=== PATIENT | male | born 1980 | race Caucasian/White ===

== ENCOUNTER 2021-09-06 09:47 | Emergency (ER) | payer SELFPAY ==
[2021-09-06 09:48] VITALS: BMI 25.8
[2021-09-06 09:49] VITALS: BP 160/101; PULSE 80; RESP 16; TEMP 36.9; O2SAT 98; BMI 25.8
--- NOTE | 2021-09-06 09:55 | XR_ITS ---
FINAL REPORT CLINICAL HISTORY: lower chest/epigastric pain, smoker FINDINGS: SINGLE-VIEW CHEST The heart size is normal. The mediastinum is normal. The lungs are clear. There is no pneumothorax. IMPRESSION: No acute cardiopulmonary process. Reviewed, Interpreted and Dictated by Anthony Mondragon III, MD Transcribed by Denise Hendrickson Authenticated by Anthony Mondragon III, MD on 09/06/2021 11:12:08 AM [facility]
--- NOTE | 2021-09-06 09:59 | HMH.EDGENADL ---
ED Disposition Clinical Impression: Right upper quadrant pain, Adrenal hemorrhage Disposition: Left Against Medical Advice Condition on Discharge: Serious Instructions: DI for Acute Abdominal Pain Additional Instructions: Your CAT scan done today shows inflammation around your right kidney and adrenal gland, raising the possibility of hemorrhage of your adrenal gland. Follow-up with [facility] general surgery, call for by an appointment to be seen as soon as possible. If you decide you want further evaluation and treatment, return to an emergency department. Preferably [facility] emergency department, but closest emergency department if necessary. Referrals: Provider,Referral, [Primary Care Provider] - - Critical Care Critical Care Time: No Attestation: On , the high probability of a clinically significant, sudden or life threatening deterioration of the following system(s) required my full and direct attention, intervention and personal management. The time I documented below is in addition to time spent performing reported procedures but includes the following listed in this critical care notation. Medical Decision Making - Medical Records Medical records reviewed: Yes: I reviewed the patient's medical records. MR Comment: Reviewed ED record from [facility] 09/06/2021. Diagnosed with epigastric pain. Lab results were not transmitted to us. Acute abdominal series was ordered, results not transmitted to us. EKG was transmitted which is normal. Prescribed omeprazole. Given Toradol and GI cocktail in the emergency department - Wan Inquiry Pt receiving controlled substance: Yes Wan was queried for this patient: Yes Risks and benefits of using a controlled substance: were discussed with pt by me Vital Signs: 09/06/21 09:49 09/06/21 10:35 09/06/21 11:05 Temperature 98.5 F Temperature Source Oral Pulse Rate 89 81 Pulse Rate [Radial] 80 Respiratory Rate 16 16 18 Blood Pressure 158/93 H 129/82 Blood Pressure [Right Arm] 160/101 H Blood Pressure Mean Blood Pressure Mean [Right Arm] 120 Blood Pressure Position Sitting Blood Pressure Position [Right Arm] Sitting 02 Sat by Pulse Oximetry 98 98 100 Oxygen Delivery Method Room Air Room Air 09/06/21 13:23 Temperature Temperature Source Pulse Rate 92 H Pulse Rate [Radial] Respiratory Rate 18 Blood Pressure 154/86 H Blood Pressure [Right Arm] Blood Pressure Mean 110 Blood Pressure Mean [Right Arm] Blood Pressure Position Blood Pressure Position [Right Arm] 02 Sat by Pulse Oximetry 99 Oxygen Delivery Method Room Air - Lab Data Lab Results 09/06/21 09:51: WBC 11.7 H, RBC 4.87, Hgb 14.5, Hct 44.2, MCV 90.8, MCH 29.7, MCHC 32.7, RDW 14.3, Plt Count 386, MPV 7.3 L, Neut % (Auto) 79.4, Lymph % (Auto) 14.8, [place] % (Auto) 4.5, Eos % (Auto) 0.6, Baso % (Auto) 0.7, Neut # (Auto) 9.3 H, Lymph # (Auto) 1.7, [place] # (Auto) 0.5, Eos # (Auto) 0.1, Baso # (Auto) 0.1 09/06/21 09:51: Sodium 133 L, Potassium 2.8 L*, Chloride 99, Carbon Dioxide 31 H, Anion Gap 5.8, BUN 7 L, Creatinine 0.80, Estimated Creat Clear 142, Estimated GFR 107, Est GFR ( Amer) 130, Glucose 145 H, Calcium 8.1 L, Total Bilirubin 0.3, AST 26, ALT 21, Alkaline Phosphatase 107, Troponin I < 0.01, Total Protein 5.6 L, Albumin 2.8 L, Globulin 2.8, Albumin/Globulin Ratio 1.0 L, Lipase 37 09/06/21 09:57: Plasma/Serum Alcohol < 10 09/06/21 11:25: Urine Color Yellow, Urine Appearance Clear, Urine pH 7.5, Ur Specific Pierce 1.025, Urine Protein 3+, Urine Glucose (UA) Negative, Urine Ketones Negative, Urine Blood 1+, Urine Nitrate Negative, Urine Bilirubin 1+ A, Urine Urobilinogen 1.0, Ur Leukocyte Esterase Negative, Urine RBC Occasional, Urine WBC 3-5, Ur Squamous Epith Cells None, Urine Mucus 4+ 09/06/21 11:25: Urine Opiates Screen Positive H, Urine Methadone Screen Negative, Ur Barbituates Screen Negative, Ur Phencyclidine Scrn Negative, U
--- NOTE | 2021-09-06 10:00 | US_ITS ---
FINAL REPORT CLINICAL HISTORY: ruq pain FINDINGS: Sonographic images of the right upper quadrant were obtained. The pancreas is partially obscured.The liver has an unremarkable appearance.The gallbladder appears normal without evidence of gallstones.There is no evidence of biliary ductal dilatation.The common duct measures 4mm. Limited images of the right kidney are unremarkable. IMPRESSION: Unremarkable right upper quadrant ultrasound. Reviewed, Interpreted and Dictated by Anthony Mondragon III, MD Transcribed by Armin Reyes Authenticated by Anthony Mondragon III, MD on 09/06/2021 11:16:04 AM [facility]
[2021-09-06 10:02] LABS: Chloride 99 mmol/L (98-107); Sodium 133 mmol/L (136-145)
[2021-09-06 10:05] LABS: Alanine Aminotransferase 21 U/L (12-78); Albumin Level 2.8 g/dl (3.5-5.0); Alkaline Phosphatase 107 U/L (38-126); Anion Gap 5.8 mEq/L (5-15); Aspartate Amino Transferase 26 U/L (17-59); Bilirubin,Total 0.3 mg/dl (0.2-1.3); Blood Urea Nitrogen 7 mg/dl (9-20); Calcium 8.1 mg/dl (8.4-10.2); Carbon Dioxide 31 mmol/L (22.0-30.0); Creatinine Clearance Estimated 142 mL/min (50-200); Estimated Glomerular Filt Rate 107 ml/min (>60); GFR (African American) 130 ML/MIN (>60); Globulin 2.8 g/dL (1.3-3.2); Glucose 145 mg/dl (74-100); Lipase 37 U/L (23-300); Total Protein,Serum 5.6 g/dl (6.3-8.2)
[2021-09-06 10:10] LABS: Basophils # 0.1 K/mm3 (0-0.2); Basophils % 0.7 % (0.1-2.0); Eosinophils # 0.1 K/mm3 (0.0-0.4); Eosinophils % 0.6 % (0.1-12.0); Hematocrit 44.2 % (42.0-52.0); Hemoglobin 14.5 g/dL (14.1-18.0); Lymphocytes # 1.7 K/mm3 (0.7-4.5); Lymphocytes % 14.8 % (10-50); Mean Corpuscular HGB Conc 32.7 g/dL (31.8-35.4); Mean Corpuscular Hemoglobin 29.7 pg (27.0-31.2); Mean Corpuscular Volume 90.8 fl (80-94); Mean Platelet Volume 7.3 fl (7.4-10.4); Monocytes # 0.5 K/mm3 (0.1-1.0); Monocytes % 4.5 % (1.7-9.3); Neutrophils # 9.3 K/mm3 (1.8-7.8); Neutrophils % 79.4 % (37.0-80.0); Platelet Count 386 K/mm3 (142-424); Potassium 2.8 mmoL/L (3.5-5.1); Red Blood Count 4.87 M/mm3 (4.60-6.20); Red Cell Distribution Width 14.3 % (11.5-17.5); White Blood Count 11.7 K/mm3 (4.8-10.8)
[2021-09-06 10:24] LABS: Troponin I < 0.01 ng/ml (0.00-0.034)
[2021-09-06 10:25] LABS: Ethyl Alcohol < 10 mg/dl (0-10)
[2021-09-06 10:35] VITALS: BP 158/93; PULSE 89; RESP 16; O2SAT 98
--- NOTE | 2021-09-06 10:35 | PC.NURSE ---
pt return from ultrasound
--- NOTE | 2021-09-06 10:39 | ECG_ITS ---
APPROVED REPORT Exam: Resting ECG HR:82 bpm ECG Measurements Heart Rate 82 AXES ME 168 P 83 QRSd 89 QRS 59 QT 372 T 70 QTc 410 Conclusion SINUS RHYTHM NONSPECIFIC T-WAVE ABNORMALITY BORDERLINE ECG UNCONFIRMED REPORT Electronically signed by : Immanuel Aceves MD 09/06/2021 21:23:19
[2021-09-06 11:05] VITALS: BP 129/82; PULSE 81; RESP 18; O2SAT 100
--- NOTE | 2021-09-06 11:27 | CT_ITS ---
FINAL REPORT TECHNIQUE: After the administration of oral and intravenous contrast, axial images were obtained through the abdomen and pelvis by computed tomography. The study was performed with techniques to keep radiation dose as low as reasonably achievable, (ALARA). Individual dose reduction techniques using automated exposure control or adjustment of mA and/or kV according to the patient's size were employed. CLINICAL HISTORY: RUQ abdo pain FINDINGS: Abdomen: The lung bases are clear. The liver is normal in size and attenuation. The gallbladder is present. The spleen is unremarkable. The right adrenal gland is mildly enlarged. There is fat stranding adjacent to the right adrenal gland and upper pole of the right kidney of uncertain etiology. This could be due to right adrenal hemorrhage or right pyelonephritis with inflammation. The pancreas is unremarkable. The kidneys enhance appropriately. The aorta is normal in caliber. There is no free fluid or adenopathy. Mild vascular calcification is identified. Pelvis: The appendix is unremarkable. There is descending and sigmoid diverticulosis without evidence of diverticulitis. The urinary bladder is unremarkable. There is no free fluid or adenopathy. IMPRESSION: Right adrenal hemorrhage versus right pyelonephritis with inflammation. Descending and sigmoid diverticulosis without evidence of diverticulitis. Reviewed, Interpreted and Dictated by Anthony Mondragon III, MD Transcribed by Denise Hendrickson Authenticated by Anthony Mondragon III, MD on 09/06/2021 01:06:[address] [facility]
[2021-09-06 11:32] LABS: Microscopic, Urine URINE MICROSCOPIC (MICROSCOPIC)
[2021-09-06 11:37] LABS: Appearance,Urine CLEAR (Clear); Blood, Urine 1+ (Negative); Color,Urine YELLOW (Yellow); Glucose,Urine (UA) Negative (Negative); Ketones,Urine Negative (Negative); Leukocyte Esterase,Urine Negative (Negative); Nitrate,Urine Negative (Negative); PH,Urine 7.5 (5.0-8.5); Protein,Urine 3+ (Negative); Specific Gravity, Urine 1.025 (1.005-1.030)
--- NOTE | 2021-09-06 11:40 | PC.NURSE ---
pt to CT via wheelchair
[2021-09-06 11:52] LABS: Benzodiazepines Screen,Urine Negative ng/ml (<200)
[2021-09-06 11:53] LABS: Barbiturates Screen,Urine Negative ng/ml (<200); Cannabinoid Screen,Urine Positive ng/ml (<50)
[2021-09-06 11:54] LABS: Bilirubin,Urine 1+ (Negative); Cocaine Screen,Urine Negative ng/ml (<300)
[2021-09-06 11:55] LABS: Methadone Screen,Urine Negative ng/ml (<300); Opiate Screen,Urine Positive ng/ml (<300)
[2021-09-06 11:56] LABS: Phencyclidine Screen,Urine Negative ng/ml (<25)
[2021-09-06 12:09] LABS: RBC,Urine Occasional #/hpf (0-3)
[2021-09-06 12:10] LABS: Mucus,Urine 4+ /lpf
[2021-09-06 12:59] LABS: Amphetamine/Metha Screen,Urine Positive ng/ml (<1000)
--- NOTE | 2021-09-06 12:59 | PC.NURSE ---
waiting acura sales consultant back from radiology they are checking on the status of pt ct results
--- NOTE | 2021-09-06 13:09 | PC.NURSE ---
spoke to gurdeep with xray, she advised preliminary was in , waiting for final to come across, dr landry advised
[2021-09-06 13:23] VITALS: BP 154/86; PULSE 92; RESP 18; O2SAT 99
--- NOTE | 2021-09-06 13:25 | PC.NURSE ---
contacting [facility] per ER request
--- NOTE | 2021-09-06 13:26 | PC.NURSE ---
waiting substation wireman back from [facility]
--- NOTE | 2021-09-06 13:32 | PC.NURSE ---
LU VASQUES speaking with [facility], Dr. Fountain
[2021-09-06 15:30] VITALS: BP 132/74; PULSE 78; RESP 18; TEMP 36.9; O2SAT 98
== END 2021-09-06 15:30 | disposition left against medical advice (07) ==
PROVIDERS: Emergency Provider Emergency Medicine
DX: R10.11 Right upper quadrant pain (principal); E27.49 Other adrenocortical insufficiency; Z53.29 Procedure and treatment not carried out because of patient's decision for other reasons; F12.90 Cannabis use, unspecified, uncomplicated; Z72.0 Tobacco use; Z72.89 Other problems related to lifestyle
CPT/HCPCS: 71045; 74177; 76705; 80053; 80305; 81001; 83690; 84484; 85025; 87086; 93005; 96374; 96375; 96376; 99284; Q9967

== ENCOUNTER 2022-02-04 21:11 | Inpatient (IN) | payer SELFPAY ==
[2022-02-04 21:11] VITALS: BP 148/88; PULSE 98; RESP 16; TEMP 36.7; O2SAT 100; BMI 24.3; BMI 27.3
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
--- NOTE | 2022-02-04 21:27 | CT_ITS ---
PROCEDURE INFORMATION: Exam: CT Head Without Contrast Exam date and time: 02/04/2022 9:34 PM Age: 41 years old Clinical indication: Injury or trauma; Fall; Blunt trauma (contusions or hematomas); Additional info: Confusion, fall TECHNIQUE: Imaging protocol: Computed tomography of the head without contrast. Radiation optimization: All CT scans at this facility use at least one of these dose optimization techniques: automated exposure control; mA and/or kV adjustment per patient size (includes targeted exams where dose is matched to clinical indication); or iterative reconstruction. COMPARISON: No relevant prior studies available. FINDINGS: Brain: No large territorial infarction. No hemorrhage. No mass effect or midline shift. Cerebral ventricles: No ventriculomegaly. Paranasal sinuses: Mucosal thickening of the paranasal sinuses. Mastoid air cells: Visualized mastoid air cells are well aerated. Bones/joints: No acute fracture. Soft tissues: No significant soft tissue abnormality. IMPRESSION: Paranasal sinus disease.
[2022-02-04 21:30] VITALS: BP 106/63; PULSE 100; O2SAT 100
--- NOTE | 2022-02-04 21:37 | XR_ITS ---
PROCEDURE INFORMATION: Exam: XR Right Hand Exam date and time: 02/04/2022 10:01 PM Age: 41 years old Clinical indication: Injury or trauma; Fall; Blunt trauma (contusions or hematomas); Hand; Right; Additional info: Injury, fall, right hand pain TECHNIQUE: Imaging protocol: Radiologic exam of the Right hand. Views: 3 or more views. COMPARISON: No relevant prior studies available. FINDINGS: Bones/joints: Normal. Soft tissues: Normal. IMPRESSION: No acute findings.
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
--- NOTE | 2022-02-04 21:37 | XR_ITS ---
PROCEDURE INFORMATION: Exam: XR Chest Exam date and time: 02/04/2022 10:01 PM Age: 41 years old Clinical indication: Injury or trauma; Fall; Blunt trauma (contusions or hematomas) TECHNIQUE: Imaging protocol: Radiologic exam of the chest. Views: 4 or more views. COMPARISON: CR XR CHEST PORTABLE 09/06/2021 9:57 AM FINDINGS: Lungs: No consolidation. Pleural spaces: No pleural effusion. Heart/Mediastinum: Cardiomediastinal contours are within normal limits. Bones/joints: No acute fracture. IMPRESSION: No acute findings.
[2022-02-04 21:44] LABS: Chloride 101 mmol/L (98-107); Potassium 3.5 mmoL/L (3.5-5.1); Sodium 138 mmol/L (136-145)
[2022-02-04 21:47] LABS: Anion Gap 13.5 mEq/L (5-15); Basophils # 0.1 K/mm3 (0-0.2); Basophils % 0.5 % (0.1-2.0); Blood Urea Nitrogen 21 mg/dl (9-20); Calcium 8.1 mg/dl (8.4-10.2); Carbon Dioxide 27 mmol/L (22.0-30.0); Creatinine Clearance Estimated 146 mL/min (50-200); Eosinophils # 0.2 K/mm3 (0.0-0.4); Eosinophils % 1.5 % (0.1-12.0); Estimated Glomerular Filt Rate 107 ml/min (>60); GFR (African American) 130 ML/MIN (>60); Glucose 156 mg/dl (74-100); Hematocrit 39.4 % (42.0-52.0); Hemoglobin 12.7 g/dL (14.1-18.0); Lymphocytes # 2.2 K/mm3 (0.7-4.5); Lymphocytes % 14.1 % (10-50); Mean Corpuscular HGB Conc 32.3 g/dL (31.8-35.4); Mean Corpuscular Hemoglobin 29.5 pg (27.0-31.2); Mean Corpuscular Volume 91.3 fl (80-94); Mean Platelet Volume 7.4 fl (7.4-10.4); Monocytes # 0.5 K/mm3 (0.1-1.0); Monocytes % 3.2 % (1.7-9.3); Neutrophils # 12.6 K/mm3 (1.8-7.8); Neutrophils % 80.7 % (37.0-80.0); Platelet Count 454 K/mm3 (142-424); Red Blood Count 4.32 M/mm3 (4.60-6.20); Red Cell Distribution Width 14.6 % (11.5-17.5); White Blood Count 15.6 K/mm3 (4.8-10.8)
[2022-02-04 22:00] VITALS: BP 131/84; PULSE 95; O2SAT 100
[2022-02-04 22:05] LABS: Ethyl Alcohol < 10 mg/dl (0-10); MANUAL DIFFERENTIAL MANUAL DIFFERENTIAL (MANUAL DIFF)
[2022-02-04 22:06] LABS: Acetaminophen < 10 ug/ml (10-30); Salicylate < 1.0 mg/dL (2.0-20.0)
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
[2022-02-04 22:26] LABS: Lymphocytes % 17 % (10-50); Monocytes % 1 % (2-9); Neutrophils % 78 % (42-76); Platelet Estimate Slight Increase; RBC Morphology Normal; Total Cells Counted 100; Toxic Granulation 1+
[2022-02-04 22:29] LABS: Coronavirus 19, PCR Not Detected (NotDetected); Influenza A, PCR Not Detected (NotDetected); Influenza B, PCR Not Detected (NotDetected)
[2022-02-04 22:30] VITALS: BP 103/56; PULSE 91; O2SAT 100
[2022-02-04 22:30] LABS: VBG Base Excess -1.5 mmol/L (-2.4-2.3); VBG HCO3 23.2 mmol/L (23-30); VBG Oxygen Saturation 75.7 % (50-70); VBG PCO2 37.6 mmol/L (35-51); VBG PH 7.41 mmol/L (7.31-7.41); VBG PO2 40.8 mmol/L (28-40); VBG Total CO2 24.3 mmol/L (23-27)
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
--- NOTE | 2022-02-04 22:52 | PC.NURSE ---
Contacted [facility] in [place] for records from visit earlier today. Pt content for records to be obtained.
[2022-02-04 22:54] LABS: Creatine Kinase 9204 U/L (55-170)
[2022-02-04 23:00] VITALS: BP 134/90; PULSE 94; O2SAT 96
[2022-02-04 23:29] LABS: Microscopic, Urine URINE MICROSCOPIC (MICROSCOPIC)
[2022-02-04 23:30] VITALS: BP 123/79; PULSE 94; O2SAT 100
[2022-02-04 23:33] LABS: Appearance,Urine CLEAR (Clear); Bilirubin,Urine Negative (Negative); Blood, Urine 1+ (Negative); Color,Urine YELLOW (Yellow); Glucose,Urine (UA) Negative (Negative); Ketones,Urine Negative (Negative); Leukocyte Esterase,Urine Negative (Negative); Nitrate,Urine Negative (Negative); PH,Urine 7.5 (5.0-8.5); Protein,Urine 2+ (Negative)
[2022-02-04 23:36] LABS: Amorphous Sediment,Urine Trace /lpf; Mucus,Urine Trace /lpf; WBC,Urine Occasional #/hpf (0-3)
--- NOTE | 2022-02-04 23:42 | PC.NURSE ---
Ena from poison control called and was updated on pt condition and results.
[2022-02-04 23:43] LABS: Amphetamine/Metha Screen,Urine Negative ng/ml (<1000)
[2022-02-04 23:44] LABS: Barbiturates Screen,Urine Negative ng/ml (<200); Benzodiazepines Screen,Urine Negative ng/ml (<200)
[2022-02-04 23:45] LABS: Cannabinoid Screen,Urine Positive ng/ml (<50)
[2022-02-04 23:46] LABS: Cocaine Screen,Urine Negative ng/ml (<300); Methadone Screen,Urine Negative ng/ml (<300)
[2022-02-04 23:47] LABS: Phencyclidine Screen,Urine Negative ng/ml (<25)
[2022-02-04 23:48] LABS: Opiate Screen,Urine Negative ng/ml (<300)
[2022-02-05] VITALS (8 sets, daily range): BP systolic 108–132; BP diastolic 66–86; PULSE 78–95; RESP 14–20; TEMP 36.6–37.1; O2SAT 97–100; BMI 21.6
--- NOTE | 2022-02-05 00:20 | PC.NURSE ---
Hospitalist paged for admission
--- NOTE | 2022-02-05 00:51 | PC.NURSE ---
House notified of need for bed assignment.
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
--- NOTE | 2022-02-05 01:03 | PC.NURSE ---
Report called to NEVAEH Campbell by NEVAEH Britton at this time
--- NOTE | 2022-02-05 01:39 | CT_ITS ---
PROCEDURE INFORMATION: Exam: CT Right Upper Extremity Without Contrast, Hand Exam date and time: 02/05/2022 1:35 AM Age: 41 years old Clinical indication: Injury or trauma; Fall; Blunt trauma (contusions or hematomas); Hand; Right TECHNIQUE: Imaging protocol: Computed tomography of the Right upper extremity without contrast. Exam focused on the hand. Radiation optimization: All CT scans at this facility use at least one of these dose optimization techniques: automated exposure control; mA and/or kV adjustment per patient size (includes targeted exams where dose is matched to clinical indication); or iterative reconstruction. COMPARISON: CT HAND RT WO CON 02/05/2022 1:14 AM FINDINGS: Bones/joints: No acute fracture, dislocation or osseous destructive process. No periosteal reaction. Soft tissues: Diffuse soft tissue swelling/edema in the hand, most notably along the dorsal aspect. No drainable fluid collection identified. IMPRESSION: 1. No acute osseous findings. 2. Diffuse soft tissue swelling/edema in the hand, most notably along its dorsal aspect without drainable fluid collection identified.
--- NOTE | 2022-02-05 01:48 | PC.NURSE ---
PT ARRIVED TO FLOOR VIA STRETCHER @ THIS TIME
--- NOTE | 2022-02-05 01:56 | PC.NURSE ---
Called [facility] to ask about verifying MAR orders that had been waiting for 1 hour. Verna from [facility] said she just verified ER med orders. Me orders were still not verified when SNRA from Med/Surg came down to get pt. Meds on MAR were verified w/ EAshley prior to administration.
--- NOTE | 2022-02-05 05:49 | PC.NURSE ---
upon arrival to floor, pt uncooperative and refused to answer many questions about history or medications, has become more cooperative as the shift has progressed, remains on room air, has not complained of any pain so far
[2022-02-05 07:03] LABS: Chloride 107 mmol/L (98-107)
[2022-02-05 07:04] LABS: Potassium 3.6 mmoL/L (3.5-5.1); Sodium 139 mmol/L (136-145)
[2022-02-05 07:05] LABS: Basophils # 0.1 K/mm3 (0-0.2); Basophils % 0.4 % (0.1-2.0); Eosinophils # 0.1 K/mm3 (0.0-0.4); Eosinophils % 0.9 % (0.1-12.0); Hematocrit 33.8 % (42.0-52.0); Lymphocytes # 3.1 K/mm3 (0.7-4.5); Lymphocytes % 25.2 % (10-50); Mean Corpuscular HGB Conc 32.5 g/dL (31.8-35.4); Mean Corpuscular Hemoglobin 29.3 pg (27.0-31.2); Mean Corpuscular Volume 90.1 fl (80-94); Mean Platelet Volume 7.8 fl (7.4-10.4); Monocytes # 0.6 K/mm3 (0.1-1.0); Monocytes % 4.4 % (1.7-9.3); Neutrophils # 8.6 K/mm3 (1.8-7.8); Neutrophils % 69.1 % (37.0-80.0); Platelet Count 421 K/mm3 (142-424); Red Blood Count 3.76 M/mm3 (4.60-6.20); Red Cell Distribution Width 14.6 % (11.5-17.5); White Blood Count 12.4 K/mm3 (4.8-10.8)
[2022-02-05 07:06] LABS: Alanine Aminotransferase 57 U/L (12-78); Alkaline Phosphatase 96 U/L (38-126); Anion Gap 11.6 mEq/L (5-15); Aspartate Amino Transferase 121 U/L (17-59); Bilirubin,Total 0.2 mg/dl (0.2-1.3); Blood Urea Nitrogen 16 mg/dl (9-20); Calcium 7.1 mg/dl (8.4-10.2); Carbon Dioxide 24 mmol/L (22.0-30.0); Creatinine Clearance Estimated 122 mL/min (50-200); Estimated Glomerular Filt Rate 107 ml/min (>60); GFR (African American) 130 ML/MIN (>60); Glucose 101 mg/dl (74-100)
[2022-02-05 07:07] LABS: Albumin Level 2.6 g/dl (3.5-5.0); Albumin/Globulin Ratio 0.9 (1.1-1.8); Globulin 2.9 g/dL (1.3-3.2); Magnesium 2.1 mg/dl (1.6-2.3); Total Protein,Serum 5.5 g/dl (6.3-8.2)
[2022-02-05 07:09] LABS: Lactic Acid 0.6 mmol/L (0.7-2.1)
[2022-02-05 07:25] LABS: Creatine Kinase 5224 U/L (55-170)
--- NOTE | 2022-02-05 10:33 | CT_ITS ---
PROCEDURE INFORMATION: Exam: CT Chest Without Contrast; Diagnostic Exam date and time: 02/05/2022 11:17 AM Age: 41 years old Clinical indication: Shortness of breath TECHNIQUE: Imaging protocol: Diagnostic computed tomography of the chest without contrast. Radiation optimization: All CT scans at this facility use at least one of these dose optimization techniques: automated exposure control; mA and/or kV adjustment per patient size (includes targeted exams where dose is matched to clinical indication); or iterative reconstruction. COMPARISON: CR XR CHEST AP 02/04/2022 10:01 PM FINDINGS: Lungs: Ill-defined nodularity in the right lung, with largest nodule measuring 2.4 x 2 cm in the right upper lobe. Cavitation of the largest nodules evident. Diffuse bronchial wall thickening in the right lung, with lower lobe predominance. Pleural spaces: Unremarkable. No pneumothorax. No pleural effusion. Heart: Unremarkable. No cardiomegaly. No pericardial effusion. Mild coronary artery calcification. Lymph nodes: Coarsely calcified mediastinal lymph nodes may be due to previous granulomatous infection. Bulky right hilar lymphadenopathy. Vasculature: Unremarkable. No aortic aneurysm. Bones/joints: Unremarkable. No acute fracture. Soft tissues: Unremarkable. IMPRESSION: 1. Ill-defined nodularity in the right lung, with largest nodule measuring 2.4 x 2 cm in the right upper lobe. Cavitation of the largest nodules evident. Differential is broad, including septic pulmonary emboli, tuberculosis, granulomatous diseases, and malignancy. Additional workup necessary. 2. Diffuse bronchial wall thickening in the right lung, with lower lobe predominance. 3. Coarsely calcified mediastinal lymph nodes may be due to previous granulomatous infection. 4. Bulky right hilar lymphadenopathy.
--- NOTE | 2022-02-05 18:08 | PC.NURSE ---
Pt is A/ox4. He is RA and sounds dimished, it sounds like crackles in lower bases. He has igh hand edema, scrapes to both side of his face and scattered. He stated that he doesn't remember what happened of how he got here. He has slept most of the day. His bed alarm is on and has been educated about using call light before he gets up. He has tolerated his diet well today. He has denied pain, N/V, and Light headed or dizzy.
[2022-02-06 03:51] VITALS: BP 128/64; PULSE 69; RESP 16; TEMP 36.6; O2SAT 98
--- NOTE | 2022-02-06 04:50 | PC.NURSE ---
Pt alert and oriented x 4. Pt medicated once thus far during my shift for pain w/ favorable results. R hand is still swollen, but sensation and movement remain intact. Pt on RA. Pt has rested well this shift. Iv fluids infusing per order. Call light in reach. Bed alarm on for safety.
[2022-02-06 05:00] VITALS: BMI 21.6
[2022-02-06 07:06] LABS: Chloride 110 mmol/L (98-107); Potassium 3.7 mmoL/L (3.5-5.1); Sodium 139 mmol/L (136-145)
[2022-02-06 07:07] LABS: Basophils # 0.1 K/mm3 (0-0.2); Basophils % 0.5 % (0.1-2.0); Eosinophils # 0.1 K/mm3 (0.0-0.4); Eosinophils % 1.1 % (0.1-12.0); Hematocrit 35.4 % (42.0-52.0); Hemoglobin 11.3 g/dL (14.1-18.0); Lymphocytes # 3.2 K/mm3 (0.7-4.5); Lymphocytes % 33.8 % (10-50); Mean Corpuscular HGB Conc 31.9 g/dL (31.8-35.4); Mean Corpuscular Hemoglobin 29.2 pg (27.0-31.2); Mean Corpuscular Volume 91.7 fl (80-94); Mean Platelet Volume 7.5 fl (7.4-10.4); Monocytes # 0.4 K/mm3 (0.1-1.0); Monocytes % 4.6 % (1.7-9.3); Neutrophils # 5.7 K/mm3 (1.8-7.8); Neutrophils % 60.1 % (37.0-80.0); Platelet Count 467 K/mm3 (142-424); Red Blood Count 3.86 M/mm3 (4.60-6.20); Red Cell Distribution Width 14.6 % (11.5-17.5); White Blood Count 9.5 K/mm3 (4.8-10.8)
[2022-02-06 07:08] LABS: Alanine Aminotransferase 50 U/L (12-78); Aspartate Amino Transferase 84 U/L (17-59); Blood Urea Nitrogen 10 mg/dl (9-20); Creatinine Clearance Estimated 139 mL/min (50-200); Estimated Glomerular Filt Rate 125 ml/min (>60); GFR (African American) 151 ML/MIN (>60)
[2022-02-06 07:09] LABS: Albumin Level 2.8 g/dl (3.5-5.0); Albumin/Globulin Ratio 0.9 (1.1-1.8); Alkaline Phosphatase 101 U/L (38-126); Anion Gap 9.7 mEq/L (5-15); Calcium 7.7 mg/dl (8.4-10.2); Carbon Dioxide 23 mmol/L (22.0-30.0); Globulin 3.1 g/dL (1.3-3.2); Glucose 87 mg/dl (74-100); Total Protein,Serum 5.9 g/dl (6.3-8.2)
[2022-02-06 07:10] LABS: Bilirubin,Total < 0.1 mg/dl (0.2-1.3)
[2022-02-06 07:16] LABS: Creatine Kinase 2389 U/L (55-170)
[2022-02-06 08:00] VITALS: BP 113/71; PULSE 85; RESP 16; TEMP 36.8; O2SAT 96
[2022-02-06 08:28] LABS: Carboxyhemoglobin 1.4 (0.0-5.0)
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
--- NOTE | 2022-02-07 13:08 | CARE MANAGER ---
Attempted to contacted patient related to hospital discharge. Left VM. NEVAEH Thompson
[2022-02-08 15:20] LABS: Carbon Monoxide, Whole Blood 2.6 % (0.0-3.6)
[2022-02-08 20:01] LABS: QuantiFERON-TB Gold Plus Negative (Negative)
== END 2022-02-06 11:19 | disposition home or self-care (01) | DRG 558 ==
LOC: ER 02-05 00:44 → 2ND 02-05 01:01
PROVIDERS: Nurse Practitioner Acute Care; Admitting Provider Emergency Medicine; Emergency Provider Emergency Medicine; Visit Provider Emergency Medicine
DX: M62.82 Rhabdomyolysis (principal); G93.40 Encephalopathy, unspecified; F17.210 Nicotine dependence, cigarettes, uncomplicated; M79.89 Other specified soft tissue disorders; R91.1 Solitary pulmonary nodule
CPT/HCPCS: 36415; 70450; 71045; 71250; 72170; 73130; 73200; 80048; 80053; 80305; 80329; 81001; 82375; 82550; 82803; 83605; 83735; 85007; 85025; 86480; 99285; C9803; U0003; U0005

== ENCOUNTER → 2022-02-07 11:00 | Outpatient (CLI) | payer MEDICAID, SELFPAY ==
[2022-02-07 13:13] LABS: Basophils # 0.1 K/mm3 (0-0.2); Basophils % 0.8 % (0.1-2.0); Eosinophils # 0.2 K/mm3 (0.0-0.4); Hematocrit 43.3 % (42.0-52.0); Hemoglobin 13.6 g/dL (14.1-18.0); Lymphocytes # 2.9 K/mm3 (0.7-4.5); Lymphocytes % 30.3 % (10-50); Mean Corpuscular HGB Conc 31.5 g/dL (31.8-35.4); Mean Corpuscular Hemoglobin 29.6 pg (27.0-31.2); Mean Corpuscular Volume 94.2 fl (80-94); Mean Platelet Volume 8.3 fl (7.4-10.4); Monocytes # 0.3 K/mm3 (0.1-1.0); Monocytes % 3.5 % (1.7-9.3); Neutrophils # 6.1 K/mm3 (1.8-7.8); Neutrophils % 63.5 % (37.0-80.0); Platelet Count 642 K/mm3 (142-424); Red Cell Distribution Width 14.5 % (11.5-17.5); White Blood Count 9.7 K/mm3 (4.8-10.8)
[2022-02-07 21:57] LABS: Alanine Aminotransferase 58 U/L (12-78); Albumin Level 3.2 g/dl (3.5-5.0); Alkaline Phosphatase 126 U/L (38-126); Anion Gap 16.7 mEq/L (5-15); Aspartate Amino Transferase 65 U/L (17-59); Blood Urea Nitrogen 11 mg/dl (9-20); Calcium 8.6 mg/dl (8.4-10.2); Carbon Dioxide 27 mmol/L (22.0-30.0); Chloride 101 mmol/L (98-107); Estimated Glomerular Filt Rate 107 ml/min (>60); GFR (African American) 130 ML/MIN (>60); Globulin 3.2 g/dL (1.3-3.2); Glucose 79 mg/dl (74-100); Potassium 4.7 mmoL/L (3.5-5.1); Sodium 140 mmol/L (136-145); Total Protein,Serum 6.4 g/dl (6.3-8.2)
[2022-02-07 22:05] LABS: Bilirubin,Total < 0.1 mg/dl (0.2-1.3)
[2022-02-08 10:41] LABS: HIV Screen 4th Generation wRfx Non Reactive (Non Reactive); Hep A Ab, Total Negative (Negative); Hep B Core Ab, Total Negative (Negative); Hep B Surface Ab, Qual Reactive (.); Hepatitis B Surface Antigen Negative (Negative); Hepatitis C Antibody <0.1 s/co ratio (0.0-0.9)
[2022-02-10 02:29] LABS: ALT (SGPT) P5P 56 IU/L (0-55); Alpha 2-Macroglobulins, Qn 215 mg/dL (110-276); Apolipoprotein A-1 105 mg/dL (101-178); Bilirubin, Total 0.1 mg/dL (0.0-1.2); Fibrosis Score 0.05 (0.00-0.21); GGT 29 IU/L (0-65); Haptoglobin 610 mg/dL (17-317); Necroinflammat Activity Grade A0-A1 (.); Necroinflammat Activity Score 0.25 (0.00-0.17)
== END ==
PROVIDERS: PCP Nurse Practitioner Family; Visit Provider Nurse Practitioner Family
DX: R53.83 Other fatigue (principal); B34.8 Other viral infections of unspecified site; Z11.4 Encounter for screening for human immunodeficiency virus [HIV]
CPT/HCPCS: 80053; 81596; 85025; 86703; 86704; 86706; 86708; 87340; 87380; 87522; G0432